=== PATIENT | female | born 1955 | race Caucasian/White ===

== ENCOUNTER 2019-03-16 16:12 | Observation (INO) | payer BC ==
--- NOTE | 2019-03-16 16:40 | ED ---
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 She states that she [place] at the [place] and landed on her coccyx and then hitting her head on the ground. She states that she is unsure if she lost consciousness and has a contusion to the occipital region of her head. When EMS picked her up her BS was a 54, she was given a D50 en route to [facility] and is currently at 120. She was found with an AMS. She denies any fevers, headaches, neck pain, chills, N/V, and SOB. She states that she has a PMHx of DM type 1 and was diagnosed 40 years ago. She states that she did not eat anything unusual throughout her day. - History Of Current Complaint Chief Complaint: EDFall Stated Complaint: HYPOGLYCEMIA PER EMS Time Seen by Provider: 03/16/19 16:14 Hx Obtained From: Patient Mechanism Of Injury: Fall From A Standing Position Onset/Duration: Started Minutes Ago - RETAIL RECEIVING CLERK Onset of Pain: Immediate Severity Currently: None Severity Initially: Mild - 4/10 Pain Intensity: 0 Pain Scale Used: 0-10 Numeric Location of Head Injury: Occipital Location: Discrete At: Aggravating Factor(s): Other: - nothing Alleviating Factor(s): Other: - D50 for BS Associated Signs And Symptoms: Negative - fevers, headaches, neck pain, chills, N/V, and SOB, LOC Duration Unknown - states possible LOC, Swelling, Other: - BS 54 at scene, currently 120 - Allergies/Home Medications Allergies/Adverse Reactions: Allergies Allergy/AdvReac Type Severity Reaction Status Date / Time No Known Allergies Allergy Verified 03/16/19 16:24 Home Medications: Home Medications Atorvastatin* [Lipitor*] 20 mg PO DAILY 03/16/19 [History Confirmed 03/16/19] Insulin Lispro [Humalog Kwikpen U-100] 1 unit SUBCUT SEE INSTRUCTIONS 03/16/19 [ History Confirmed 03/16/19] PMH/Surg Hx/FS Hx/Imm Hx Previously Healthy: Yes Endocrine/Hematology History: Reports: Hx Diabetes - type 1 Cardiovascular History: Reports: Hx Hypertension GI History: Reports: Hx Ulcer - Cancer History Hx Chemotherapy: No Hx Radiation Therapy: No - Surgical History Surgical History: Yes Surgery Procedure, Year, and Place: carpal tunnel x3 each hand. - Immunization History Immunizations Up to Date: Yes Infectious Disease History: No Infectious Disease History: Denies: Traveled Outside the [place] in Last 30 Days - Family History Known Family History: Positive: Hypertension, Diabetes - Social History Occupation: Retired Lives: Alone Alcohol Use: None Hx Substance Use: No Substance Use Type: Reports: None Hx Tobacco Use: No Smoking Status (MU): Never Smoked Tobacco Review of Systems Negative: Fever, Chills ENT: Negative - neck pain Positive: Other - BS 54 at scene, 120 currently Negative: Shortness Of Breath Negative: Vomiting, Nausea Positive: Bruising - to occipital region of head with swelling Negative: Headache All Other Systems Reviewed And Are Negative: Yes Physical Exam - Summary Physical Exam Summary: VITAL SIGNS: Reviewed. GENERAL: Patient is a well-developed and nourished female who is lying comfortable in the stretcher. Patient is not in any acute respiratory distress. HEAD AND FACE: No signs of trauma. No ecchymosis, hematomas or skull depressions. No sinus tenderness. EYES: PERRLA, EOMI x 2, No injected conjunctiva, no nystagmus. EARS: Hearing grossly intact. Ear canals and tympanic membranes are within normal limits. MOUTH: Oropharynx within normal limits. NECK: Supple, trachea is midline, no adenopathy, no JVD, no carotid bruit, no c- spine tenderness, neck with full ROM. CHEST: Symmetric, no tenderness at palpation LUNGS: Clear to auscultation bilaterally. No wheezing or crackles. CVS: Regular rate and rhythm, S1 and S2 present, no murmurs or gallops appreciated. ABDOMEN: Soft, non-tender. No signs of distention. No rebound no guarding, and no masses palpated. Bowel sounds are normal. EXTREMITIES: FROM in all major joints, no edema, no cyanosis or clubbing. NEURO: Alert and oriented x 3. No acute neurological deficits. Speech is normal and follows commands. SKIN: Dry and warm Triage Information Reviewed: Yes Vital Signs On Initial Exam: Initial Vitals Temp Pulse Resp BP Pulse Ox 97.4 F 102 16 153/75 99 03/16/19 16:14 03/16/19 16:14 03/16/19 16:14 03/16/19 16:14 03/16/19 16:14 Vital Signs Reviewed: Yes Procedures - Sedation Patient Received Moderate/Deep Sedation with Procedure: No Diagnostics - Vital Signs Vital Signs Temp Pulse Resp BP Pulse Ox 03/16/19 16:14 97.4 F 102 16 153/75 99 - Laboratory Result Diagrams: 03/16/19 17:07 03/17/19 05:18 Lab Statement: Any lab studies that have been ordered have been reviewed, and results considered in the medical decision making process. - Radiology CXR Radiology Interpretation Completed By: Radiologist Summary of Radiographic Findings: Probable mild pulmonary vascular congestion. ED physician has reviewed this report. - CT Brain CT CT Interpretation Completed By: Radiologist Summary of CT Findings: No traumatic brain injury or acute intracranial process evident. RIGHT parietal vertex scalp hematoma measuring up to 3.9 cm AP by 3.3 cm transverse by 0.9 cm thickness. Negative for fracture. ED physician has reviewed this report. - EKG 1801 Cardiac Rate: NL - 99 BPM EKG Rhythm: Sinus Rhythm ST Segment: Normal Ectopy: None Summary of EKG Findings: An EKG at 1801 reveals NSR at 99 BPM, nml axis, nml intervals. No STEMI. No acute changes from previous EKG. Interpreted by Dr. Raymundo at 03/16/2019 1806. Re-Evaluation - Re-Evaluation First Eval Re-Evaluation Time: 17:51 Change: Unchanged Comment: Pt's BS is in the low 50s. She is a little confused. She was give D50. Second Eval Re-Evaluation Time: 17:59 Change: Improved Comment: Pt's BS is back up to 150's. She is feeling much better and is being given food. 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 She states that she fell while at the mall backwards and landed on her coccyx and then hitting her head on the ground. She states that she is unsure if she lost consciousness and had a contusion to the occipital region of her head. When EMS picked her up her BS was a 54, she was given a D50 en route to [facility] [place] [facility] and is currently at 120. She was found with an AMS. She denies any fevers, headaches, neck pain, chills, N/V, and SOB. She states that she has a PMHx of DM type 1 and was diagnosed 40 years ago. She states that she did not eat anything unusual throughout her day. Head CT impression: No traumatic brain injury or acute intracranial process evident. Right parietal vertex scalp hematoma measuring up to 3.9 cm AP by 3.3 cm transverse by 0.9 cm thickness. Negative for fracture. CXR impression: Mild pulmonary vascular congestion. Blood work without a significant abnormality supportiveness glucose of 56. Reassess the patient and the patient was acting confused, therefore, we give the patient another D50 and now the patient is alert and oriented 3. I discuss my physical exam and test results with Dr. Engel from the hospitalist services and he agrees to admit the patient to his services. The patient is hemodynamically stable alert and oriented x 3. - Diagnoses Differential Diagnosis/HQI/PQRI: Cerebral Contusion, Concussion Without LOC, Contusion, Hematoma, Intracranial Bleed Provider Diagnoses: Hypoglycemia, Head contusion - Physician Notifications Discussed Care Of Patient With: Mariella Engel Time Discussed With Above Provider: 18:24 Instructed by Provider To: Admit As Inpatient Admit/Transition Orders Completed By ED Provider: Yes Discharge ED - Sign-Out/Discharge Documenting (check all that apply): Patient Departure - admitted - Discharge Plan Condition: Stable Disposition: ADMITTED TO [facility] - Billing Disposition and Condition Condition: STABLE Disposition: Admitted to [facility] - Attestation Statements Document Initiated by Eduardo: Yes Documenting Scribe: Sukhi Goodman Provider For Whom Eduardo is Documenting (Include Credential): Geovany Raymundo MD Scribe Attestation: Sukhi Moralez scribed for Geovany Raymundo MD on 03/17/19 at 1031. Scribe Documentation Reviewed: Yes Provider Attestation: The documentation as recorded by the Sukhi oh accurately reflects the service I personally performed and the decisions made by me, Geovany Raymundo MD Status of Scribe Document: Viewed
[2019-03-16 17:25] LABS: ABS Basophils 0.1 10^3/ul (0-0.2); ABS Eosinophils 0.3 10^3/ul (0-0.6); ABS Monocytes 0.6 10^3/ul (0-0.8); ABS Neutrophils 6.9 10^3/ul (1.5-7.7); Eosinophil % 3.2 %; Hematocrit 42 % (35-47); Hemoglobin 14.2 g/dL (12.0-16.0); Lymphocyte % 11.5 %; Mean Corpuscular HGB Conc 34 g/dL (31-36); Mean Corpuscular Hemoglobin 30 pg (27-31); Mean Corpuscular Volume 87 fL (80-97); Mean Platelet Volume 8.5 fL (7.4-10.4); Platelet Count 295 10^3/uL (150-450); Red Cell Distribution Width 14 % (10-15); White Blood Count 8.9 10^3/uL (3.5-10.8)
[2019-03-16 17:39] LABS: Albumin 4.3 g/dL (3.2-5.2); Albumin/Globulin Ratio 1.8 (1-3); BUN/Creatinine Ratio 21.8 (8-20); C Reactive Protein 6.24 mg/L (<8.01); Calcium 8.9 mg/dL (8.6-10.3); EGFR Non-African American 74.4 (>60); Globulin 2.4 g/dL (2-4); Potassium 3.5 mmol/L (3.5-5.0); Total Bilirubin 0.4 mg/dL (0.2-1.0); Total Protein 6.7 g/dL (6.4-8.9)
[2019-03-16 17:40] LABS: Troponin I 0.01 ng/mL (<0.03)
[2019-03-16] MEDS ORDERED: Dextrose 50% VIAL 50 ml ONE (17:49)
[2019-03-16] MEDS ORDERED: Dextrose 50% VIAL 50 ml IV PRN (17:49)
[2019-03-16] MEDS ORDERED: Acetaminophen TAB* 325 MG PO PRN (18:45)
[2019-03-16] MEDS ORDERED: Ondansetron INJ* 2 MG/ML VIAL IV PRN (18:45)
[2019-03-16 18:48] LABS: Urine Appearance Clear; Urine Bilirubin Negative (Negative); Urine Blood Negative (Negative); Urine Color Straw; Urine Glucose 1+(50 mg/dL) (Negative); Urine Ketones Negative (Negative); Urine Nitrite Negative (Negative); Urine Protein Negative (Negative); Urine Specific Gravity 1.008 (1.010-1.030); Urine Urobilinogen Negative (Negative)
[2019-03-16] MEDS ORDERED: Dextrose 50% Syringe 50 ML* 25 GM/50 ML SYRINGE IV PUSH PRN (18:56)
[2019-03-16 18:57] LABS: Urine Bacteria 1+ (Absent); Urine Red Blood Cell Trace(0-2/hpf) (Absent); Urine Squamous Epithelial Cell Present (Absent); Urine White Blood Cell Trace(0-5/hpf) (Absent)
[2019-03-16] MEDS ORDERED: Enoxaparin(*) 40 MG/0.4 ML SYR SUBCUT SCH (19:00)
[2019-03-16 19:48] LABS: Insulin 6.3 mcIU/mL (2.0-16.0)
--- NOTE | 2019-03-16 22:32 | HP ---
CC: Dr. Annie Stephenson * ADMISSION HISTORY AND PHYSICAL: DATE OF ADMISSION: 03/16/19 PRIMARY CARE PROVIDER: Dr. Annie Stephenson. MY ATTENDING WHILE IN THE HOSPITAL: Dr. Mariella Flannery.* (DICTATED BY FARIHA LOYD) CHIEF COMPLAINT: Loss of consciousness, hypoglycemia. HISTORY OF PRESENT ILLNESS: Ms. Carreno is a 63-year-old female with past medical history significant for diabetes, treated as type 1 per her report; hypertension; hyperlipidemia, who presents to the emergency department after this morning, she was feeling in normal state of health, ate 2 meals that were normal for her and did contain carbohydrates and took 4 units of insulin with each and then was walking around the mall. This is not an abnormal amount of exercise for her and she was about to get dinner and the next thing she remembers was waking up in the ambulance being told her blood sugar was low. The patient has approximately 3 to 4 episodes similar to this a year. She has had seizures in conjunction with them before, but there was no noted ictal activity and no postictal state. The patient's blood sugar increased to approximately 100 with dextrose given in the ambulance; however, it then decreased again with symptomaticity while in the emergency department and responded again to dextrose IV push. The patient denies any recent illnesses. The patient has no changes in her medications. The patient is unclear on medications, but she does not remember being on a beta vielka. The patient has relatively good control of her diabetes. The patient denies nausea, vomiting, abdominal pain, or diarrhea. The patient has had a good appetite. The patient denies recent weight loss or weight gain. The patient denies chest pain, shortness of breath, abdominal pain, diarrhea, nausea, or vomiting. The patient is eating a sandwich during this interview. The patient has previously followed with an golf professional, but does not currently follow with one. Due to concern for recurrent symptomatic hypoglycemia, we were asked to evaluate the patient for admission to the hospital. PAST MEDICAL HISTORY: Diabetes mellitus, type 1; hypertension; hyperlipidemia; history of provoked seizures. PAST SURGICAL HISTORY: Carpal tunnel release bilaterally. MEDICATIONS: The patient is unclear on her medications. The only medication is from her medication reconciliation. Externally are atorvastatin 20 mg daily as well as insulin sliding scale 6 times daily per instructions provided. The patient claims she takes medications for her blood pressure. The patient's sister is bringing up the list of her medications and these will be reconciled when available. ALLERGIES: No known drug allergies. FAMILY HISTORY: The patient's mother of breast cancer. The patient's father of old age. The patient has 10 siblings, all of whom are generally health. She is the only one with diabetes. SOCIAL HISTORY: The patient never smoked, drank, or used illicit drugs. The patient is a retired schoolteacher. The patient is never , has no children. The patient's surrogate decision maker will be her sister, Belen Hernández. REVIEW OF SYSTEMS: A 10-point review of systems was reviewed and is negative except as stated above in the HPI. PHYSICAL EXAMINATION GENERAL: The patient is a 63-year-old female, who appears stated age, sitting comfortably in bed, in no acute distress. VITAL SIGNS: At time of evaluation, temperature 97.4, pulse rate 90, respiratory rate 16, oxygen saturation 99% on room air, blood pressure 153/75. HEENT: Head: Normocephalic, atraumatic. Sclerae anicteric. No conjunctival injection. Nasal mucosa moist. Oral mucosa moist. No pharyngeal erythema, discharge, or exudate. NECK: Supple. No lymphadenopathy. No carotid bruit auscultated. No JVD. RESPIRATORY: Clear to auscultation bilaterally. No wheezes, rhonchi. Good air exchange bilaterally. CARDIAC: Regular rate and rhythm. No clicks, murmurs, gallops, or rubs. Pulses 2+ in the bilateral dorsalis pedis, posterior tibialis, and radial areas. ABDOMEN: Soft, nontender, nondistended. Bowel sounds present, normoactive in all 4 quadrants. No hepatosplenomegaly. No abdominal bruits auscultated. No hepatojugular reflux. GENITOURINARY: No suprapubic or CVA tenderness. NEURO: Cranial nerves II through XII intact. No focal deficits. Alert and oriented x3. No tremors. PSYCHIATRIC: Pleasant and cooperative. SKIN: Clean, dry, intact. No rashes. DIAGNOSTIC STUDIES/LAB DATA: White blood cell count 8.9, hemoglobin 14.2, platelet count 295. Sodium 145, potassium 3.5, chloride 106, carbon dioxide 27 , anion gap 7, BUN 17, creatinine 0.78, glucose 56, calcium 8.9. Bilirubin 0.4 , AST 19, ALT 15, alkaline phosphatase 59. Troponin I 0.01. CRP 6.24. Protein 6.7, albumin 4.3, globulin 2.4. Urine is dilute, 1+ leukocyte esterase , 1+ glucose. Brain CT read as no acute intracranial abnormality. vertex scalp hematoma measuring up to 3.9 cm anteroposterior and 3.6 cm transverse thickness. Electrocardiogram read as normal sinus rhythm, normal axis, no hypertrophy or enlargement, rate of 99, QTc of 447. Chest x-ray read as probable mild pulmonary vascular congestion. ASSESSMENT AND PLAN: Impression: Ms. Carreno is a 63-year-old female with diabetes mellitus, type 1; hypertension, hyperlipidemia with frequent episodes of hypoglycemia, sometimes accompanied by seizures, who presents to the emergency department with loss of consciousness associated with hypoglycemia, which is similar to her previous pattern. With her current hypoglycemia while in the emergency department, the patient is admitted to hospital for observation and frequent glucose monitoring and treatment. 1. Hypoglycemia, diabetes mellitus, type 1. The patient's hypoglycemia is likely iatrogenic and has been for several times a year for a long period of time. We will check a hemoglobin A1c to assess the patient's control of her blood glucose. It is possible the patient's treatment might be able to be dialed back and to decrease the risk of these dangerous hypoglycemic episodes. The patient will have q.4 hour fingersticks while in the hospital with treatment with dextrose as needed for symptomatic hypoglycemia less than 60. The patient has no other provoking factors. We will check an insulin and a C- peptide level to assess for the patient's endogenous insulin capability that may possibly give clues towards an insulinoma or other abnormal cause for hypoglycemia; however, again, this is very likely just related to her insulin use. The patient does not think she is on any other medications for her diabetes at this time. The patient should follow up outpatient with an golf professional insulin regimen and conduct further investigation into her hypoglycemic episodes if her primary care provider and the patient feel this is indicated. 2. Hypertension. The patient is currently normotensive. The patient is unable to remember what medication she is on for hypertension; it is non- available through either her pharmacy or her external medication reconciliation. When available, the patient's medication will be reconciled. 3. Hyperlipidemia. Continue the patient's Lipitor. 4. DVT prophylaxis. Lovenox subcu. 5. FEN. The patient will have a consistent carbohydrate diet, fluids not indicated. 6. Disposition. The patient will have observation in the hospital. TIME SPENT: Approximately 60 minutes was spent on this admission, 30 of which was spent [id number] with the patient obtaining history and physical and discussing treatment plan. This plan has been discussed with my attending, Dr. Mariella Flannery, she is in agreement. FARIHA LOYD [id number]/[facility] #: [id number] MTDHilda
[2019-03-16] MEDS: Nystatin TOP POWDER* 15 GM BTL TOPICAL SCH (22:51)
[2019-03-17 05:55] LABS: BUN/Creatinine Ratio 18.1 (8-20); Calcium 9.3 mg/dL (8.6-10.3); EGFR African American 83.7 (>60); EGFR Non-African American 69.2 (>60); Potassium 3.9 mmol/L (3.5-5.0)
[2019-03-17] MEDS: Nystatin TOP POWDER* 15 GM BTL TOPICAL SCH (08:49)
[2019-03-17] MEDS ORDERED: Atorvastatin* 20 MG TAB PO SCH (09:00)
[2019-03-17 10:52] VITALS: BP 134/62
[2019-03-17] MEDS ORDERED: Dextrose 50% VIAL 50 ml IV PUSH PRN (11:28)
[2019-03-17] MEDS ORDERED: Insulin LISPRO* 1 UNITS UNIT SUBCUT ONE (11:28)
--- NOTE | 2019-03-17 13:57 | DS ---
CC: Dr. tSephenson * DISCHARGE SUMMARY: DATE OF ADMISSION: 03/16/19 DATE OF DISCHARGE: 03/17/19 PRIMARY CARE PROVIDER: Dr. Stephenson. PRINCIPAL DIAGNOSIS: Episode of hypoglycemia in the setting of known diabetes, questionably type 1. SECONDARY DIAGNOSES: 1. Hypertension. 2. Hyperlipidemia. DISCHARGE MEDICATIONS: 1. Magnesium oxide 400 mg p.o. daily. 2. Losartan 50 mg p.o. daily. 3. Lantus 4 units subcutaneous q.a.m., 6 units subcutaneous q.p.m. (per the patient this is on hold due to hypoglycemic episodes). 4. Lasix 20 mg p.o. daily p.r.n. lower extremity edema. 5. Ferrous sulfate 325 mg p.o. daily. 6. Aspirin 81 mg p.o. daily. 7. Lispro sliding scale 3 units for blood sugar 150 to 200; 6 units for 201 to 250; 9 units for 251 to 300; 12 units for 301 to 350; 15 units for greater than 351. 8. Lipitor 20 mg p.o. daily. HOSPITAL COURSE: Ms. Carreno is a 63-year-old female with a history of diabetes , who reports that this was type 1 diabetes, though has been off her Lantus, who was at the mall walking around, about ready to get dinner and the next thing she knew she was waking up in an ambulance. The patient was reportedly hypoglycemic. The patient was given dextrose in the ambulance with improvement in symptoms. In the emergency room, she again went hypoglycemic. The patient was admitted for evaluation. The patient's blood sugars have ranged from 133 to 198. This is off all insulin. Her hemoglobin A1c was found to be elevated at 8.4%. The patient had a C-peptide sent, this is pending at the time of this dictation. At this point, the patient is felt to be stable for discharge home as her blood sugars have remained stable. After eating breakfast on the morning of discharge, however, the patient's blood sugar was markedly elevated at 339. She is being given 12 units of lispro as per her sliding scale. Followup blood sugar will be obtained in approximately 2 hours. This is to ensure that she does not have a precipitous drop in her blood glucose. The patient's technical data analyst has left and she follows only with her PCP at this point. I have asked the patient to consider following up with Dr. Cervantes of Endocrinology here in [place]; however, she provided numerous excuses as to why that would not be possible. On the day of discharge, the patient is awake, alert, and oriented, sitting up in bed, in no acute distress. Cardiac exam reveals normal S1, S2. There are no murmurs. She has no lower extremity edema. Lungs are clear to auscultation bilaterally. Abdomen is soft, nontender, nondistended. She moves all 4 extremities symmetrically. FOLLOWUP CONCERNS: The patient is being discharged home today 03/17/19. Activity level is as tolerated. Diet is diabetic. CONDITION ON DISCHARGE: Stable. TIME SPENT: Twenty five minutes was spent discharging this patient. [id number]/[facility] #: [id number] MTDD
== END 2019-03-17 13:30 | disposition home or self-care (01) ==
LOC: ED 16:12 → MED 18:45
PROVIDERS: ADMIT Internal Medicine; ATTEND Hospitalist
DX: E11.649 Type 2 diabetes mellitus with hypoglycemia without coma (principal); R55 Syncope and collapse; S00.93XA Contusion of unspecified part of head, initial encounter; I10 Essential (primary) hypertension; E78.5 Hyperlipidemia, unspecified; Z79.82 Long term (current) use of aspirin; Z79.899 Other long term (current) drug therapy
CPT/HCPCS: 36415; 70450; 71046; 80048; 80053; 81003; 81015; 83036; 83525; 84484; 84681; 85025; 86140; 87077; 87086; 87186; 93005; 96372; 96374; 99283; A9270-GY; G0378; J1650